=== PATIENT | female | born 1995 | race Caucasian/White ===

== ENCOUNTER 2022-07-18 14:17 | Emergency (ER) | payer MEDICAID ==
[~2022-07-18] VITALS: Ht 170.2 cm; Wt 90.7 kg
[2022-07-18 14:44] VITALS: BP_SYST 111
[2022-07-18] MEDS ORDERED: KETOROLAC TROMETHAMINE 60 MG/2 ML VIAL IM ONE (16:00)
--- NOTE | 2022-07-18 17:09 | NUR ---
Pt brought by self, A&Ox4, pt presents to ER with lower back pain after falling during skating 1 week ago, pt c/o mild tingling on lower extremities, skin pink and warm, cap refill <3, will cont to monitor.
--- NOTE | 2022-07-18 17:10 | NUR ---
Dr Noel evaluatine patient at bedside
[2022-07-18] MEDS ORDERED: DICL75TA5 PO (17:34)
[2022-07-18] MEDS ORDERED: DICL20GE TP (17:34)
--- NOTE | 2022-07-18 17:44 | NUR ---
Patient given written and verbal discharge instructions and verbalizes understanding. ER MD discussed with patient the results and treatment provided. Patient in stable condition. ID arm band removed. Rx of Voltaren given. Patient educated on pain management and to follow up with PMD. Pain Scale 2/10. Opportunity for questions provided and answered. Medication side effect fact sheet provided.
[2022-07-18 17:45] VITALS: BP_SYST 111
== END 2022-07-18 17:45 | disposition home or self-care (01) ==
LOC: SED 14:17
DX: S39.012A Strain of muscle, fascia and tendon of lower back, initial encounter (principal); Z88.0 Allergy status to penicillin; Z79.899 Other long term (current) drug therapy; V00.211A Fall from ice-skates, initial encounter; Y93.89 Activity, other specified; Y92.89 Other specified places as the place of occurrence of the external cause; Y99.8 Other external cause status
CPT/HCPCS: 99283; 72100; 81025; 96372; J1885